=== PATIENT | female | born 1940 | race Caucasian/White ===

== ENCOUNTER → 2017-12-17 | Day surgery (SDC) | payer OTHER, MEDICARE ==
[~2017-12-17] VITALS: Ht 147.3 cm; Wt 54.4 kg
[~2017-12-17] MED LIST: ADVIL100 MG PO; ALEVE220 M1 PO; AMOX-CLAV 875-1 EACH PO; COZAAR50 M1 PO; LEVOTHYROXINE100 MC1 PO; VITAMIN D2000 UNIT PO; ZOCOR40 M1 PO
--- NOTE | 2017-12-17 08:20 | History & Physical Pre-Op ---
General Information and HPI History of Present Illness: Licha is a 77-year-old female with a long-standing history of a nonhealing ulcer to her left fifth digit. The patient has failed an extended course of local intensive wound care, including periodic debridements, adjunct of wound therapy and courses of by mouth antibiotics. Unfortunately, the patient developed an osteomyelitis and now requires a 5th toe amputation. Allergies/Medications Allergies: Coded Allergies: No Known Allergies (12/13/17) Home Med list Amoxicillin/Clavulanate Potass (Amox-Clav 875-125 MG Tablet) 875 MG-125 MG TABLET 1 TAB PO BID ANTIBIOTIC (Reported) Cholecalciferol (Vitamin D3) (Vitamin D) 2,000 UNIT CAPSULE 1 CAP PO DAILY SUPPLEMENT (Reported) Ibuprofen (Advil) 100 MG TABLET 1 TAB PO PRN PAIN (Reported) Levothyroxine Sodium 100 MCG TABLET 1 TAB PO DAILY THYROID (Reported) Losartan Potassium (Cozaar) 50 MG TABLET 1 TAB PO BID BP (Reported) Naproxen Sodium (Aleve) 220 MG CAPSULE 1 CAP PO PRN PAIN (Reported) Simvastatin (Zocor*) 40 MG TABLET 1 TAB PO DAILY CHOLESTEROL (Reported) Past History Medical History Cardiovascular: hypertension, hyperlipidemia Endocrine: hypothyroidism Surgical History Pertinent Surgical History: non-contributory Review of Systems Review of Systems: Unremarkable except for that noted in history present illness Exam & Diagnostic Data Physical Exam: Lungs clear bilaterally. Heart sounds rate and rhythm regular. Lower 70 physical exam demonstrates intact pedal pulses bilaterally. Pulses dorsalis pedis and posterior tibial arteries are palpable bilaterally. Patient without any sensory motor deficits. Deep tendon reflexes grossly intact. Patient noted to have a De La Cruz grade 3 ulceration the medial aspect of the left fifth digit. There is probing identified centrally with exposed bone. The chronic edema and erythema extending to the metatarsophalangeal joint. Assessment/Plan Assessment/Plan: Left fifth toe osteomyelitis. A lengthy discussion reviewing both surgical and conservative options was held the patient at bedside and the patient elects to go forward surgery despite the risks. As Ranked By This Provider Problem List: 1. Other acute osteomyelitis, left ankle and foot Attending MD Review Statement Attending Statement Attending MD Statement: examined this patient
--- NOTE | 2017-12-17 12:26 | Operative Report ---
Operative/Inv Procedure Report Surgery Date: 12/17/17 Name of Procedure: 1 open incision and drainage deep to the fascia with exposure of the extensor and flexor tendon and tendon sheath multiple sites left foot 2 closure of chronic nonhealing ulceration left foot with local random advancement flap 3 debridement of necrotic bone left foot 4 intraoperative administration of ankle block anesthesia 5 excisional debridement Pre-Operative Diagnosis: 1 open necrotic wound left foot 2 osteomyelitis left foot Post-Operative Diagnosis: The same Estimated Blood Loss: less than 50ml Surgeon/Building Repair Maintenance Supervisor: Luca TAN,Elias Buenrostro DPM Anesthesia: moderate sedation, block Operative/Procedure Note Note: After obtaining informed consent the patient was brought to the operating room placed on the operating table in the supine position. The patient isn't securely fastened to the operating table utilizing safety belt. After administration of IV sedation, 10 mL of 0.5% Marcaine plain was infiltrated about the patient's left ankle. The foot and ankle within scrubbed prepped and draped in usual aseptic manner. Attention directed distal lateral left foot, where a large full-thickness chronic was identified. A 15 blade visualized sharply revised skin margins. Dissection was then carried down deep to the deep fascia with exposure of the extensor and flexor tendon and tendon sheath multiple sites, both proximally and distally. All necrotic nonviable infected tissue sharply evacuated from the wound bed. Next, a racquet type incision compassing the distal fifth ray was marked out with a skin marker. A 15 blade visualized to develop full-thickness flaps and the dissection was carried down to the metatarsophalangeal joint is osseous segments freed and passed from the operative field. Specimen was sent for both microbiologic and pathologic inspection. Nipple was then irrigated with 3 L of normal sterile saline infusion 50,000 units of bacitracin. Following this, the foot was redraped and surgeon's top was changed clean gloves. Any bleeding vessels identified were cauterized or ligated as encountered. A dorsal flap was then developed with undermining, mobilization and advancement of the adjacent tissues centrally. Plantarly, the moring ligaments released and again undermining, mobilization of the adjacent tissues was utilized to advancement flap superiorly. The deep side flap was held centrally with 3-0 Vicryl and the septae stitches reprepped with 4 -0 Vicryl. The skin is reapproximated 4-0 nylon. Incision was then dressed with Xeroform 4 x 4's Kerlix and Jacob wrap. The patient noted tolerate both procedure and anesthesia well and the patient was transported from the operating room to recovery with vital signs stable best assess intact to both the dorsal and plantar flaps.
== END ==
LOC: STS 01:35
DX: M86.172 Other acute osteomyelitis, left ankle and foot (principal); L97.524 Non-pressure chronic ulcer of other part of left foot with necrosis of bone; I10 Essential (primary) hypertension; E03.9 Hypothyroidism, unspecified
CPT/HCPCS: 87070; 87075; J0690; J2001; J2250

== ENCOUNTER 2018-04-02 20:47 | Emergency (ER) | payer OTHER, MEDICARE ==
[~2018-04-02] VITALS: Ht 147.3 cm; Wt 54.4 kg
[2018-04-02 20:50] VITALS: BP 172/83
[2018-04-02 21:39] LABS: ABSOLUTE BASOPHIL COUNT 0 /CUMM (0.0-0.2); ABSOLUTE EOSINOPHIL COUNT 0.2 /CUMM (0.0-0.7); ABSOLUTE GRANULOCYTE CT 4.4 /CUMM (1.4-6.5); ABSOLUTE LYMPH COUNT 1.8 /CUMM (1.2-3.4); ABSOLUTE MONOCYTE COUNT 0.7 /CUMM (0.10-0.60); BASOPHIL % 0.4 % (0.0-2.0); EOSINOPHIL % 2.8 % (0-5); GRANULOCYTE % 61.1 % (42.2-75.2); HEMATOCRIT 36.9 % (37-47); MEAN CORPUSCULAR HGB 29.2 PG (27.0-31.0); MEAN CORPUSCULAR HGB CONC 33.3 G/DL (33.0-37.0); MEAN CORPUSCULAR VOLUME 87.8 FL (81.0-99.0); MEAN PLATELET VOLUME 8.6 FL (7.4-10.4); PLATELET COUNT 262 /CUMM (130-400); RED BLOOD CELL CT 4.21 /CUMM (4.20-5.40); WHITE BLOOD CELL COUNT 7.1 /CUMM (4.8-10.8)
--- NOTE | 2018-04-02 22:06 | ED GENERAL ADULT ---
History of Present Illness General Chief Complaint: Upper Extremity Problem Stated Complaint: UPPER BACK PAIN RADIATING TO LEFT SIDE Source: patient Exam Limitations: no limitations Vital Signs & Intake/Output Vital Signs & Intake/Output Vital Signs Date Time Temp Pulse Resp B/P B/P Pulse O2 O2 Flow FiO2 Mean Ox Delivery Rate 04/02 2050 96.0 75 18 172/83 96 Room Air Allergies Coded Allergies: No Known Allergies (12/13/17) Reconcile Medications Cholecalciferol (Vitamin D3) (Vitamin D) 2,000 UNIT CAPSULE 1 CAP PO DAILY SUPPLEMENT (Reported) Levothyroxine Sodium 100 MCG TABLET 1 TAB PO DAILY THYROID (Reported) Losartan Potassium (Cozaar) 50 MG TABLET 1 TAB PO BID BP (Reported) Simvastatin (Zocor*) 40 MG TABLET 1 TAB PO DAILY CHOLESTEROL (Reported) Triage Note: PT TO TRIAGE C/O UPPER BACK PAIN, MORE TO THE L SIDE RADIATING INTO L SHOULDER THAT BEGAN AT REST TONIGHT. PT REPORTS TOOK A TYLENOL AND IS NOW PAIN FREE, BUT IS STILL CONCERNED. DENIES CP/SOB OR ANY SYMPTOMS AT THE MOMENT. Triage Nurses Notes Reviewed? yes Onset: Evening Duration: hour(s): (3-4), better, gone now Timing: single episode today Injury Environment: home Severity: mild, moderate Severity Numbers: 4 No Modifying Factors: none Associated Symptoms: back pain LMP (ages 10-50): unknown : No Patient currently breastfeeds: No HPI: 77-year-old female past medical history of hypertension, HLD, hypothyroidism evaluation of thoracic back pain. Patient states that she began noticing pain in the right side of her thoracic paraspinous muscles around 7:00 tonight will she was at rest. She states that she took Tylenol and that the pain completely resolved. It briefly returned on the left side however this time resolved without any medication. Patient states she was concerned and wanted further evaluation. Currently she is completely asymptomatic. There is never any shortness of breath chest pain nausea vomiting sweats chills hemoptysis or lower extremity edema. She has no significant history of coronary artery disease. No recent surgery or recent trauma. No other associated symptoms. (Yrn Valenzuela) Past History Travel History Traveled to [place] past 21 day No Medical History Any Pertinent Medical History? 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 No (Yrn Valenzuela) Review of Systems Review of Systems Constitutional: Reports: no symptoms. EENTM: Reports: no symptoms. Respiratory: Reports: no symptoms. Cardiovascular: Reports: no symptoms. GI: Reports: no symptoms. Genitourinary: Reports: no symptoms. Musculoskeletal: Reports: see HPI, back pain, muscle pain, muscle stiffness. Skin: Reports: no symptoms. Neurological/Psychological: Reports: no symptoms. Hematologic/Endocrine: Reports: no symptoms. Immunologic/Allergic: Reports: no symptoms. All Other Systems: Reviewed and Negative (Yrn Valenzuela) Physical Exam Physical Exam General Appearance: well developed/nourished, no apparent distress, alert, awake Head: atraumatic, normal appearance Eyes: Bilateral: normal appearance, PERRL, EOMI. Ears, Nose, Throat: hearing grossly normal Neck: normal inspection, supple, full range of motion Respiratory: normal breath sounds, chest non-tender, no respiratory distress, lungs clear Cardiovascular: regular rate/rhythm, normal peripheral pulses Peripheral Pulses: 2+ radial (R), 2+ radial (L), 2+ femoral (R), 2+ femoral (L) Gastrointestinal: soft, non-tender Back: normal inspection, normal range of motion, no vertebral tenderness Extremities: normal inspection, normal range of motion, no edema Neurologic/Psych: no motor/sensory deficits, awake, alert, oriented x 3, normal gait Skin: intact, normal color, warm/dry Lymphatic: no anterior cervical niranjan Core Measures ACS in differential dx? No CVA/TIA Diagnosis: No Sepsis Present: No Sepsis Focused Exam Completed? No (Yrn Valenzuela) Progress Differential Diagnoses I considered the following diagnoses in my evaluation of the patient: [Muscle strain, aortic dissection, acute coronary syndrome, PE, pneumonia, compression fracture, rib fracture, pneumothorax] Plan of Care: Orders Procedure Date/time Status TROPONIN LEVEL 04/02 2123 Complete D-DIMER 04/02 2123 Complete COMPREHENSIVE METABOLIC PANEL 04/02 2123 Complete CBC WITHOUT DIFFERENTIAL 04/02 2123 Complete EKG 04/02 2123 Active Laboratory Tests 04/02/182129: Anion Gap 11, Estimated GFR 53 L, BUN/Creatinine Ratio 30.0 H, Glucose 123 H, Calcium 9.7, Total Bilirubin 0.4, AST 20, ALT 22, Alkaline Phosphatase 75, Troponin I 0.06, Total Protein 7.1, Albumin 4.2, Globulin 2.9, Albumin/Globulin Ratio 1.4, D-Dimer High Sensitivty < 200, CBC w Diff NO MAN DIFF REQ, RBC 4.21, MCV 87.8, MCH 29.2, MCHC 33.3, RDW 14.0, MPV 8.6, Gran % 61.1, Lymphocytes % 25.5, Monocytes % 10.2 H, Eosinophils % 2.8, Basophils % 0.4, Absolute Granulocytes 4.4, Absolute Lymphocytes 1.8, Absolute Monocytes 0.7 H, Absolute Eosinophils 0.2, Absolute Basophils 0 Patient seen and evaluated. She is here for evaluation of an episode of thoracic back pain. The pain resolved after Tylenol she's currently completely asymptomatic. She never had any chest pain or shortness of breath. She appears well. EKG chest x-ray basic blood work including troponin and d-dimer were evaluated and were all negative. It was recommended the patient that she have a second set of EKG and cardiac enzymes however patient declines this. She wishes to go home. Advised her that her symptoms started relatively frequently and that a second set of cardiac enzymes is needed clearly rule out an acute coronary syndrome which could be life-threatening. Patient understands these risks and oriented 3 able to make this decision. She states she will follow up with her primary care doctor. Advised to continue Tylenol as needed monitor symptoms closely follow-up this week. Discussed return precautions patient agrees case discussed with Dr. BROWN and he agrees. Diagnostic Imaging: Viewed by Me: Radiology Read. Discussed w/RAD: Radiology Read. CXR Impression: PATIENT: NAREN GARCIA PRESENT AGE: 77 PATIENT ACCOUNT NO: [id number] : 38 LOCATION: [facility] ORDERING PHYSICIAN: Yrn MONIQUE SERVICE DATE: 04/02/18 EXAM TYPE: RAD - XRY- CHEST XRAY, TWO VIEWS EXAMINATION: XR CHEST CLINICAL INFORMATION: Thoracic back pain COMPARISON: 09/05/2011 TECHNIQUE: 2 views of the chest were obtained. FINDINGS: The lungs are well expanded. There is no focal consolidation, edema, or effusion. No pneumothorax. The cardiomediastinal silhouette is unchanged, with a calcified aorta. No acute osseous abnormality. Scoliotic curvature of the spine with multilevel degenerative change. IMPRESSION: No acute pulmonary findings. DICTATED BY: Larry Lugo MD DATE/TIME DICTATED:04/02/182218 INSTRUMENT ASSEMBLER:WAYNE DATE/TIME TRANSCRIBED:04/02/182218 CONFIDENTIAL, DO NOT COPY WITHOUT APPROPRIATE AUTHORIZATION. Initial ED EKG: normal sinus rhythm, no ST T wave changes (Yrn Valenzuela) Departure Departure Disposition: HOME OR SELF CARE Condition: Stable Clinical Impression Primary Impression: Thoracic back pain Qualifiers: Chronicity: acute Back pain laterality: bilateral Qualified Code: M54.6 - Pain in thoracic spine Referrals: Mirlande DUFFY,Иван Sweet (PCP/Family) Additional Instructions: Continue to take Tylenol as needed for pain. Make a follow-up with YOUr primary care doctor within the next week to review all results of today's visit. Monitor symptoms closely return with any concerns Departure Forms: Customer Survey General Discharge Information (Yrn Valenzuela) PA/PRIVATE E[facility] Co-Sign Statement Statement: ED Attending supervision documentation- x I saw and evaluated the patient. I have also reviewed all the pertinent lab results and diagnostic results. I agree with the findings and the plan of care as documented in the PA's/PRIVATE E[facility]'s documentation. [] I have reviewed the ED Record and agree with the PA's/PRIVATE EYE's documentation. [] Additions or exceptions (if any) to the PAs/PRIVATE E[facility]'s note and plan are summarized below: [] (Francesco DUFFY,Ramakrishna) Critical Care Note Critical Care Note Critical Care Time: non-applicable (Yrn Valenzuela)
--- NOTE | 2018-04-02 22:23 | RADIOLOGY REPORT ---
EXAMINATION: XR CHEST CLINICAL INFORMATION: Thoracic back pain COMPARISON: 09/05/2011 TECHNIQUE: 2 views of the chest were obtained. FINDINGS: The lungs are well expanded. There is no focal consolidation, edema, or effusion. No pneumothorax. The cardiomediastinal silhouette is unchanged, with a calcified aorta. No acute osseous abnormality. Scoliotic curvature of the spine with multilevel degenerative change. IMPRESSION: No acute pulmonary findings.
== END 2018-04-02 22:36 ==
LOC: ERH 20:47
PROVIDERS: Physician Assistant Medical
DX: M54.6 Pain in thoracic spine (principal)
CPT/HCPCS: 71046; 93005; 93010